=== PATIENT | male | born 1960 | race Caucasian/White ===

== ENCOUNTER 2018-04-20 15:33 | Inpatient (IN) | payer BC ==
[2018-04-20] MEDS ORDERED: ONDANSETRON 4 MG INJ IV (17:30)
[2018-04-20] MEDS ORDERED: ZOLPIDEM 5 MG TAB PO (17:30)
[2018-04-20] MEDS ORDERED: ACETAMINOPHEN 325 MG TAB PO (17:30)
[2018-04-20] MEDS ORDERED: DOCUSATE SODIUM 100 MG CAP PO (17:30)
[2018-04-20] MEDS ORDERED: HYDROCODONE/APAP (5/325) TAB PO (17:30)
[2018-04-20] MEDS ORDERED: NACL 0.9% 3 ML SYG IV (17:30)
[2018-04-20] MEDS ORDERED: VANCOMYCIN IV PER PHARMACY XX (17:30)
[2018-04-20] MEDS: LOSARTAN 50 MG TAB PO (17:52)
[2018-04-20] MEDS: FUROSEMIDE 20 MG TAB PO (17:52)
[2018-04-20 18:04] LABS: ADD MAN DIFF? NO
[2018-04-20 18:06] LABS: BASOPHIL # 0.1 10^3/ul (0.0-0.1); BASOPHILS % 0.7 % (0.0-2.0); EOSINOPHILS # 0.2 10^3/ul (0.0-0.5); EOSINOPHILS % 2.5 % (0.0-7.0); HEMATOCRIT 43.4 % (42.0-52.0); HEMOGLOBIN 14.4 g/dl (14.0-18.0); LYMPHOCYTES # 2.6 10^3/ul (0.8-2.9); LYMPHOCYTES % 28.9 % (15.0-51.0); MEAN CORPUSCULAR HEMOGLOBIN 29.5 pg (29.0-33.0); MEAN CORPUSCULAR HGB CONC 33.2 g/dl (32.0-37.0); MEAN CORPUSCULAR VOLUME 88.9 fl (82.0-101.0); MEAN PLATELET VOLUME 9.7 fl (7.4-10.4); MONOCYTE # 0.9 10^3/ul (0.3-0.9); MONOCYTES % 10.5 % (0.0-11.0); NEUTROPHILS % 56.4 % (39.0-77.0); PLATELET COUNT 249 10^3/UL (140-415); RED BLOOD COUNT 4.88 10^6/ul (4.70-6.10); RED CELL DISTRIBUTION WIDTH 12.3 % (11.5-14.5)
[2018-04-20 18:06] LABS: WHITE BLOOD COUNT 8.8 10^3/ul (4.8-10.8)
[2018-04-20 18:10] LABS: INR 1.08; PROTIME 14.1 Sec (11.9-14.9); PT RATIO 1.1
[2018-04-20 18:23] LABS: ALANINE AMINOTRANSFERASE 20 IU/L (13-69); ALBUMIN 4.3 g/dl (3.3-4.9); ALBUMIN/GLOBULIN RATIO 1.19; ALKALINE PHOSPHATASE 56 IU/L (42-121); ANION GAP 11 (8-16); ASPARTATE AMINO TRANSFERASE 19 IU/L (15-46); BILIRUBIN,INDIRECT 0.3 mg/dl (0-1.1); BILIRUBIN,TOTAL 0.3 mg/dl (0.2-1.3); BLOOD UREA NITROGEN 15 mg/dl (7-20); CALCIUM 9.5 mg/dl (8.4-10.2); CARBON DIOXIDE 33 mmol/L (21-31); CHLORIDE 102 mmol/L (97-110); CREATININE 0.76 mg/dl (0.61-1.24); GLUCOSE 91 mg/dl (70-220); SODIUM 142 mmol/L (135-144); TOTAL PROTEIN 7.9 g/dl (6.1-8.1)
[2018-04-20 18:36] LABS: ADD UMIC NO; UR ASCORBIC ACID 40 mg/dL (NEGATIVE); UR BILIRUBIN (Dip) NEGATIVE (NEGATIVE); UR BLOOD (Dip) NEGATIVE (NEGATIVE); UR CLARITY CLEAR (CLEAR); UR COLOR YELLOW (YELLOW); UR GLUCOSE (Dip) NEGATIVE (NEGATIVE); UR KETONES (Dip) NEGATIVE (NEGATIVE); UR LEUKOCYTE ESTERASE (Dip) NEGATIVE Leu/ul (NEGATIVE); UR NITRITE (Dip) NEGATIVE (NEGATIVE); UR TOTAL PROTEIN (Dip) NEGATIVE (NEGATIVE); UR UROBILINOGEN (Dip) 1+ mg/dL (NEGATIVE)
[2018-04-20 18:51] LABS: PARTIAL THROMBOPLASTIN TIME 29.3 Sec (25.0-35.0)
[2018-04-20 19:20] LABS: ERYTHROCYTE SEDIMENTATION RATE 18 mm/Hr (0-20)
[2018-04-20] MEDS: VANCOMYCIN 2 GM in SOD CHLORIDE 0.9% 500 ML IVPB (19:45)
[2018-04-21 05:23] LABS: WHITE BLOOD COUNT 7.3 10^3/ul (4.8-10.8)
[2018-04-21 05:23] LABS: ADD MAN DIFF? NO; BASOPHIL # 0.1 10^3/ul (0.0-0.1); BASOPHILS % 0.7 % (0.0-2.0); EOSINOPHILS # 0.3 10^3/ul (0.0-0.5); HEMATOCRIT 39.8 % (42.0-52.0); HEMOGLOBIN 13.3 g/dl (14.0-18.0); LYMPHOCYTES # 2.3 10^3/ul (0.8-2.9); LYMPHOCYTES % 31.9 % (15.0-51.0); MEAN CORPUSCULAR HEMOGLOBIN 29.5 pg (29.0-33.0); MEAN CORPUSCULAR HGB CONC 33.4 g/dl (32.0-37.0); MEAN CORPUSCULAR VOLUME 88.2 fl (82.0-101.0); MEAN PLATELET VOLUME 9.5 fl (7.4-10.4); MONOCYTE # 0.9 10^3/ul (0.3-0.9); MONOCYTES % 11.6 % (0.0-11.0); NEUTROPHIL # 3.7 10^3/ul (1.6-7.5); NEUTROPHILS % 50.6 % (39.0-77.0); PLATELET COUNT 217 10^3/UL (140-415); RED BLOOD COUNT 4.51 10^6/ul (4.70-6.10); RED CELL DISTRIBUTION WIDTH 12.4 % (11.5-14.5)
[2018-04-21] MEDS: FUROSEMIDE 20 MG TAB PO (05:35)
[2018-04-21 05:56] LABS: HEMOGLOBIN A1C 5.7 % (0-5.9)
[2018-04-21 06:33] LABS: FREE THYROXINE INDEX (Calc) 2.53 ug/ml (0.65-3.89); T3 UPTAKE 33.3 % (23.5-40.5); T4 (THYROXINE) 7.6 ug/dl (5.5-11.0)
[2018-04-21 07:16] LABS: ANION GAP 9 (8-16); CARBON DIOXIDE 30 mmol/L (21-31); CHLORIDE 106 mmol/L (97-110); POTASSIUM 4.5 mmol/L (3.5-5.1); SODIUM 140 mmol/L (135-144)
[2018-04-21 07:17] LABS: BLOOD UREA NITROGEN 12 mg/dl (7-20); CALCIUM 8.8 mg/dl (8.4-10.2); CREATININE 0.67 mg/dl (0.61-1.24); GLUCOSE 109 mg/dl (70-220); MAGNESIUM 1.9 mg/dl (1.7-2.5); PHOSPHORUS 4.5 mg/dl (2.5-4.9)
[2018-04-21] MEDS: VANCOMYCIN 1.5 GM in SOD CHLORIDE 0.9% 250 ML IVPB ×2 (08:21→20:11)
[2018-04-21] MEDS: POTASSIUM CHLORIDE (SR) 20 MEQ TAB PO (08:53)
[2018-04-21] MEDS: LOSARTAN 50 MG TAB PO (08:53)
[2018-04-21] MEDS: ENOXAPARIN 40 MG/0.4 ML SYG SC (08:54)
[2018-04-21] MEDS ORDERED: ENOXAPARIN 40 MG/0.4 ML SYG SC (09:00)
[2018-04-21] MEDS ORDERED: POTASSIUM CHLORIDE (SR) 20 MEQ TAB PO (09:00)
[2018-04-21] MEDS: EUCERIN 113 GM CR TOP (10:42)
[2018-04-22] MEDS: FUROSEMIDE 20 MG TAB PO (06:26)
[2018-04-22 08:15] LABS: VANCOMYCIN,TROUGH 7.5 ug/ml (10.0-20.0)
[2018-04-22] MEDS: ZYVOX 600 MG TAB PO ×2 (10:26→20:34)
[2018-04-22] MEDS: LOSARTAN 50 MG TAB PO (10:27)
[2018-04-22] MEDS: POTASSIUM CHLORIDE (SR) 20 MEQ TAB PO (10:27)
[2018-04-22] MEDS: EUCERIN 113 GM CR TOP (10:28)
[2018-04-22] MEDS: ENOXAPARIN 40 MG/0.4 ML SYG SC (10:30)
[2018-04-23] MEDS: FUROSEMIDE 20 MG TAB PO (05:20)
[2018-04-23 05:28] LABS: ADD MAN DIFF? NO
[2018-04-23 05:33] LABS: BASOPHILS % 0.4 % (0.0-2.0); EOSINOPHILS # 0.3 10^3/ul (0.0-0.5); EOSINOPHILS % 3.6 % (0.0-7.0); HEMATOCRIT 42.4 % (42.0-52.0); HEMOGLOBIN 13.4 g/dl (14.0-18.0); LYMPHOCYTES # 2.6 10^3/ul (0.8-2.9); LYMPHOCYTES % 27.5 % (15.0-51.0); MEAN CORPUSCULAR HEMOGLOBIN 28.3 pg (29.0-33.0); MEAN CORPUSCULAR HGB CONC 31.6 g/dl (32.0-37.0); MEAN CORPUSCULAR VOLUME 89.6 fl (82.0-101.0); MEAN PLATELET VOLUME 10.2 fl (7.4-10.4); MONOCYTE # 0.9 10^3/ul (0.3-0.9); MONOCYTES % 9.2 % (0.0-11.0); NEUTROPHIL # 5.5 10^3/ul (1.6-7.5); NEUTROPHILS % 58.3 % (39.0-77.0); PLATELET COUNT 233 10^3/UL (140-415); RED BLOOD COUNT 4.73 10^6/ul (4.70-6.10); RED CELL DISTRIBUTION WIDTH 12.3 % (11.5-14.5)
[2018-04-23 05:33] LABS: WHITE BLOOD COUNT 9.4 10^3/ul (4.8-10.8)
[2018-04-23 06:15] LABS: ANION GAP 10 (8-16); BLOOD UREA NITROGEN 14 mg/dl (7-20); CALCIUM 8.9 mg/dl (8.4-10.2); CARBON DIOXIDE 30 mmol/L (21-31); CHLORIDE 106 mmol/L (97-110); CREATININE 0.73 mg/dl (0.61-1.24); GLUCOSE 105 mg/dl (70-220); POTASSIUM 4.8 mmol/L (3.5-5.1); SODIUM 141 mmol/L (135-144)
[2018-04-23] MEDS: LOSARTAN 50 MG TAB PO (09:13)
[2018-04-23] MEDS: POTASSIUM CHLORIDE (SR) 20 MEQ TAB PO (09:13)
[2018-04-23] MEDS: ZYVOX 600 MG TAB PO (09:13)
[2018-04-23] MEDS: ENOXAPARIN 40 MG/0.4 ML SYG SC (09:14)
[2018-04-23] MEDS: EUCERIN 113 GM CR TOP (09:18)
[2018-04-23] MEDS: APIXABAN 5 MG TABLET PO (11:45)
== END 2018-04-23 12:22 | disposition home or self-care (01) | DRG 603 ==
LOC: PP2 15:33
DX: L03.115 Cellulitis of right lower limb (principal); I82.401 Acute embolism and thrombosis of unspecified deep veins of right lower extremity; I10 Essential (primary) hypertension; G47.33 Obstructive sleep apnea (adult) (pediatric); Z90.49 Acquired absence of other specified parts of digestive tract
CPT/HCPCS: 71046; 76536; 80048; 80053; 80202; 81003; 83036; 83735; 84100; 84436; 84479; 85025; 85610; 85651; 85730; 87040; 87070; 87081; 93005; 93970